=== PATIENT | male | born 1955 | race Caucasian/White ===

== ENCOUNTER → 2020-08-22 | Outpatient (REF) | payer MEDICARE ==
[2020-08-22 15:46] LABS: INR 1.87
== END ==
LOC: M PLALAB 13:18
PROVIDERS: ATTEND Nurse Practitioner Adult Health
DX: Z95.2 Presence of prosthetic heart valve (principal)

== ENCOUNTER → 2020-08-23 | Outpatient (CLI) | payer MEDICARE ==
--- NOTE | 2020-08-23 18:28 | REPPI ---
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 COMPARISON: No comparison chest x-ray. TECHNIQUE: Two views.. FINDINGS: Right hemidiaphragm is somewhat elevated. The patient is status post median sternotomy and aortic valve replacement. The heart is not enlarged. Thoracic aorta is calcific and somewhat tortuous. There is linear fibrosis in the right base. No pleural effusion is seen. No infiltrate is noted. A granulomatous calcification is seen projecting on the lateral view in the retrosternal clear space. No acute bony abnormality. IMPRESSION: Status post aortic valve replacement. Linear fibrosis and elevated right hemidiaphragm. No acute abnormality.. <Electronically signed by Jian Damon > 08/23/20 1781
== END ==
LOC: M PLAIMG 13:34
PROVIDERS: ATTEND Internal Medicine Cardiovascular Disease
DX: I11.9 Hypertensive heart disease without heart failure (principal); Z95.1 Presence of aortocoronary bypass graft

== ENCOUNTER → 2020-08-25 | Outpatient (CLI) | payer MEDICARE ==
[2020-08-25 14:04] LABS: BASO # 0.1 10^3/uL (0.0-0.2); EOS # 0.3 10^3/uL (0.0-0.5); HEMATOCRIT 48.7 % (42.0-52.0); HEMOGLOBIN 16.1 g/dl (13.5-17.5); LYMPH % 16.2 % (24.0-44.0); MEAN CORPUSCULAR HEMOGLOBIN 31.6 pg (27.0-33.0); MEAN CORPUSCULAR HGB CONC 33.1 g/dl (32.0-36.5); MEAN CORPUSCULAR VOLUME 95.5 fl (80.0-96.0); MONO # 0.7 10^3/uL (0.0-0.8); MONO % 11.7 % (2.0-8.0); NEUTROPHILS # 4.2 10^3/uL (1.5-8.5); NEUTROPHILS % 66.8 % (36.0-66.0); PLATELET COUNT, AUTOMATED 161 10^3/uL (150-450); WHITE BLOOD COUNT 6.3 10^3/uL (4.0-10.0)
[2020-08-25 14:34] LABS: ALBUMIN 3.8 GM/DL (3.2-5.2); ALT/SGPT 25 U/L (12-78); BILIRUBIN,TOTAL 1.1 MG/DL (0.2-1.0); BLOOD UREA NITROGEN 16 MG/DL (7-18); CALCIUM LEVEL 9.3 MG/DL (8.8-10.2); CARBON DIOXIDE LEVEL 30 MEQ/L (21-32); CHLORIDE LEVEL 109 MEQ/L (98-107); CHOLESTEROL LEVEL 233 MG/DL (<200); CHOLESTEROL RISK RATIO 3.477 (<5); CREATININE FOR GFR 0.92 MG/DL (0.70-1.30); GLOMERULAR FILTRATION RATE > 60.0 (>49); GLUCOSE, FASTING 93 MG/DL (70-100); HDL CHOLESTEROL 67 MG/DL (>40); LDL CHOLESTEROL 138 MG/DL (<100); NON-HDL-C 166 MG/DL; NT-PRO BNP 44 PG/ML (<125); POTASSIUM SERUM 4.2 MEQ/L (3.5-5.1); SODIUM LEVEL 142 MEQ/L (136-145); THYROID STIMULATING HORMONE 0.769 uIU/ML (0.358-3.740); TOTAL PROTEIN 7.1 GM/DL (6.4-8.2); TRIGLYCERIDES LEVEL 140 MG/DL (<150)
== END ==
LOC: M PLALAB 10:19
PROVIDERS: ATTEND Internal Medicine Cardiovascular Disease
DX: M25.511 Pain in right shoulder (principal); R00.2 Palpitations; I11.9 Hypertensive heart disease without heart failure; R60.0 Localized edema; I35.9 Nonrheumatic aortic valve disorder, unspecified; R94.31 Abnormal electrocardiogram [ECG] [EKG]

== ENCOUNTER → 2020-12-16 | Outpatient (CLI) | payer MEDICARE | LOC: M SLEEP HO 09:41 | PROVIDERS: ATTEND Internal Medicine Cardiovascular Disease | DX: I27.20 Pulmonary hypertension, unspecified (principal) ==

== ENCOUNTER → 2021-08-29 | Outpatient (CLI) | payer MEDICARE ==
[2021-08-29 13:24] LABS: HEMATOCRIT 44.6 % (42.0-52.0); HEMOGLOBIN 14.9 g/dl (13.5-17.5); MEAN CORPUSCULAR HEMOGLOBIN 30.8 pg (27.0-33.0); MEAN CORPUSCULAR HGB CONC 33.4 g/dl (32.0-36.5); MEAN CORPUSCULAR VOLUME 92.3 fl (80.0-96.0); PLATELET COUNT, AUTOMATED 158 10^3/uL (150-450); RED BLOOD COUNT 4.83 10^6/uL (4.30-6.10); WHITE BLOOD COUNT 6.2 10^3/uL (4.0-10.0)
[2021-08-29 13:50] LABS: ALBUMIN 3.5 GM/DL (3.2-5.2); ALT/SGPT 37 U/L (12-78); BILIRUBIN,TOTAL 0.8 MG/DL (0.2-1.0); BLOOD UREA NITROGEN 22 MG/DL (7-18); CALCIUM LEVEL 9.1 MG/DL (8.8-10.2); CARBON DIOXIDE LEVEL 27 MEQ/L (21-32); CHLORIDE LEVEL 109 MEQ/L (98-107); CHOLESTEROL LEVEL 232 MG/DL (<200); CHOLESTEROL RISK RATIO 4.734 (<5); CREATININE FOR GFR 1.01 MG/DL (0.70-1.30); GLOMERULAR FILTRATION RATE > 60.0 (>49); GLUCOSE, FASTING 102 MG/DL (70-100); HDL CHOLESTEROL 49 MG/DL (>40); NON-HDL-C 183 MG/DL; POTASSIUM SERUM 4.3 MEQ/L (3.5-5.1); SODIUM LEVEL 142 MEQ/L (136-145); TOTAL PROTEIN 6.7 GM/DL (6.4-8.2); TRIGLYCERIDES LEVEL 419 MG/DL (<150)
[2021-08-29 14:10] LABS: HEMOGLOBIN A1c 5.3 %
== END ==
LOC: M PLALAB 09:58
PROVIDERS: ATTEND Nurse Practitioner Adult Health
DX: I10 Essential (primary) hypertension (principal)

== ENCOUNTER → 2021-10-19 | Outpatient (CLI) | payer MEDICARE | LOC: M SLEEP 20:00 | PROVIDERS: ATTEND Internal Medicine Pulmonary Disease | DX: G47.33 Obstructive sleep apnea (adult) (pediatric) (principal) ==

== ENCOUNTER → 2022-03-29 | Outpatient (CLI) | payer MEDICARE ==
[2022-03-29 14:21] LABS: BASO # 0.1 10^3/uL (0.0-0.2); EOS # 0.4 10^3/uL (0.0-0.5); EOS % 6.2 % (0.0-3.0); HEMATOCRIT 48.5 % (42.0-52.0); HEMOGLOBIN 15.2 g/dl (13.5-17.5); LYMPH # 1.2 10^3/uL (1.5-5.0); LYMPH % 18.3 % (24.0-44.0); MEAN CORPUSCULAR HEMOGLOBIN 30.3 pg (27.0-33.0); MEAN CORPUSCULAR HGB CONC 31.3 g/dl (32.0-36.5); MEAN CORPUSCULAR VOLUME 96.6 fl (80.0-96.0); MONO # 0.7 10^3/uL (0.0-0.8); MONO % 10.5 % (2.0-8.0); NEUTROPHILS # 4.3 10^3/uL (1.5-8.5); NEUTROPHILS % 63.7 % (36.0-66.0); PLATELET COUNT, AUTOMATED 175 10^3/uL (150-450); RED BLOOD COUNT 5.02 10^6/uL (4.30-6.10); WHITE BLOOD COUNT 6.7 10^3/uL (4.0-10.0)
[2022-03-29 14:58] LABS: ERYTHROCYTE SEDIMENTATION RATE 15 mm/hr (0-20)
[2022-03-29 15:51] LABS: ALBUMIN 3.6 GM/DL (3.2-5.2); BLOOD UREA NITROGEN 23 MG/DL (7-18); CALCIUM LEVEL 9.2 MG/DL (8.8-10.2); CARBON DIOXIDE LEVEL 28 MEQ/L (21-32); CHLORIDE LEVEL 109 MEQ/L (98-107); CHOLESTEROL LEVEL 227 MG/DL (<200); CHOLESTEROL RISK RATIO 3.982 (<5); CREATININE FOR GFR 1.05 MG/DL (0.70-1.30); GLOMERULAR FILTRATION RATE > 60.0 (>49); GLUCOSE, FASTING 109 MG/DL (70-100); HDL CHOLESTEROL 57 MG/DL (>40); LDL CHOLESTEROL 125 MG/DL (<100); NON-HDL-C 170 MG/DL; NT-PRO BNP 51 PG/ML (<125); PHOSPHORUS LEVEL 3.2 MG/DL (2.5-4.9); POTASSIUM SERUM 4.6 MEQ/L (3.5-5.1); SODIUM LEVEL 144 MEQ/L (136-145); TRIGLYCERIDES LEVEL 223 MG/DL (<150)
== END ==
LOC: M PLALAB 09:19
PROVIDERS: ATTEND Internal Medicine Cardiovascular Disease
DX: I35.9 Nonrheumatic aortic valve disorder, unspecified (principal); E78.00 Pure hypercholesterolemia, unspecified

== ENCOUNTER → 2022-09-24 | Outpatient (CLI) | payer MEDICARE ==
[2022-09-24 14:03] LABS: ALBUMIN 3.7 G/DL (3.2-5.2); ALKALINE PHOSPHATASE 77 U/L (46-116); ALT/SGPT 16 U/L (7.0-40); AST/SGOT 26 U/L (<34); BLOOD UREA NITROGEN 17 MG/DL (9-23); CARBON DIOXIDE LEVEL 28 MMOL/L (20-31); CHLORIDE LEVEL 108 MMOL/L (98-107); CHOLESTEROL LEVEL 248 MG/DL (<200); CHOLESTEROL RISK RATIO 4.04 (<5); CREATININE FOR GFR 0.93 MG/DL (0.70-1.30); GLOMERULAR FILTRATION RATE > 60.0 (>49); GLUCOSE, FASTING 105 MG/DL (74-106); HDL CHOLESTEROL 61.3 MG/DL (>40); LDL CHOLESTEROL 152.3 MG/DL (<100); NON-HDL-C 186.7 MG/DL; POTASSIUM SERUM 4.1 MMOL/L (3.5-5.1); SODIUM LEVEL 141 MMOL/L (136-145); TOTAL PROTEIN 6.7 G/DL (5.7-8.2); TRIGLYCERIDES LEVEL 172 MG/DL (<150)
== END ==
LOC: M PLALAB 10:15
PROVIDERS: ATTEND Nurse Practitioner Adult Health
DX: E78.2 Mixed hyperlipidemia (principal)

== ENCOUNTER → 2022-09-27 | Outpatient (REF) | payer MEDICARE ==
[2022-09-27 14:14] LABS: HEMATOCRIT 48.8 % (42.0-52.0); HEMOGLOBIN 16.1 g/dl (13.5-17.5); MEAN CORPUSCULAR HEMOGLOBIN 31.1 pg (27.0-33.0); MEAN CORPUSCULAR VOLUME 94.2 fl (80.0-96.0); PLATELET COUNT, AUTOMATED 194 10^3/uL (150-450); RED BLOOD COUNT 5.18 10^6/uL (4.30-6.10); WHITE BLOOD COUNT 7.4 10^3/uL (4.0-10.0)
[2022-09-27 16:38] LABS: HEMOGLOBIN A1c 5.1 % (4.0-6.0)
== END ==
LOC: M SFHCPLAZ 12:56
PROVIDERS: ATTEND Nurse Practitioner Adult Health
DX: E78.2 Mixed hyperlipidemia (principal); Z13.1 Encounter for screening for diabetes mellitus; I71.20 Thoracic aortic aneurysm, without rupture, unspecified

== ENCOUNTER → 2022-11-19 | Outpatient (CLI) | payer MEDICARE ==
[2022-11-19 12:24] LABS: ALBUMIN 3.6 G/DL (3.2-5.2); ALKALINE PHOSPHATASE 72 U/L (46-116); ALT/SGPT 33 U/L (7.0-40); AST/SGOT 34 U/L (<34); BILIRUBIN,TOTAL 1.7 MG/DL (0.3-1.2); BLOOD UREA NITROGEN 25 MG/DL (9-23); CALCIUM LEVEL 9.2 MG/DL (8.3-10.6); CARBON DIOXIDE LEVEL 28 MMOL/L (20-31); CHLORIDE LEVEL 102 MMOL/L (98-107); CHOLESTEROL LEVEL 167 MG/DL (<200); CHOLESTEROL RISK RATIO 2.58 (<5); CREATININE FOR GFR 1.06 MG/DL (0.70-1.30); GLOMERULAR FILTRATION RATE > 60.0 (>49); GLUCOSE, FASTING 92 MG/DL (74-106); HDL CHOLESTEROL 64.5 MG/DL (>40); LDL CHOLESTEROL 75.7 MG/DL (<100); NON-HDL-C 102.5 MG/DL; POTASSIUM SERUM 4.1 MMOL/L (3.5-5.1); SODIUM LEVEL 136 MMOL/L (136-145); TOTAL PROTEIN 6.5 G/DL (5.7-8.2); TRIGLYCERIDES LEVEL 134 MG/DL (<150)
== END ==
LOC: M PLALAB 09:43
PROVIDERS: ATTEND Internal Medicine Cardiovascular Disease
DX: I11.9 Hypertensive heart disease without heart failure (principal); E78.00 Pure hypercholesterolemia, unspecified

== ENCOUNTER → 2023-06-27 | Outpatient (CLI) | payer MEDICARE ==
[2023-06-27 16:28] LABS: BASO # 0.1 10^3/uL (0.0-0.2); EOS # 0.2 10^3/uL (0.0-0.5); EOS % 3.4 % (0.0-3.0); HEMATOCRIT 42.9 % (42.0-52.0); HEMOGLOBIN 14.4 g/dl (13.5-17.5); LYMPH # 1.3 10^3/uL (1.5-5.0); LYMPH % 17.8 % (24.0-44.0); MEAN CORPUSCULAR HEMOGLOBIN 30.8 pg (27.0-33.0); MEAN CORPUSCULAR HGB CONC 33.6 g/dl (32.0-36.5); MEAN CORPUSCULAR VOLUME 91.9 fl (80.0-96.0); MONO # 0.7 10^3/uL (0.0-0.8); NEUTROPHILS # 4.8 10^3/uL (1.5-8.5); NEUTROPHILS % 67.4 % (36.0-66.0); PLATELET COUNT, AUTOMATED 165 10^3/uL (150-450); RED BLOOD COUNT 4.67 10^6/uL (4.30-6.10); WHITE BLOOD COUNT 7.1 10^3/uL (4.0-10.0)
[2023-06-27 16:41] LABS: ALBUMIN 3.6 G/DL (3.2-5.2); ALKALINE PHOSPHATASE 70 U/L (46-116); ALT/SGPT 51 U/L (7.0-40); AST/SGOT 51 U/L (<34); BILIRUBIN,TOTAL 1.2 MG/DL (0.3-1.2); BLOOD UREA NITROGEN 24 MG/DL (9-23); CALCIUM LEVEL 8.9 MG/DL (8.3-10.6); CARBON DIOXIDE LEVEL 28 MMOL/L (20-31); CHLORIDE LEVEL 106 MMOL/L (98-107); CREATININE FOR GFR 0.97 MG/DL (0.70-1.30); GLOMERULAR FILTRATION RATE > 60.0 (>49); GLUCOSE, FASTING 91 MG/DL (74-106); POTASSIUM SERUM 3.9 MMOL/L (3.5-5.1); SODIUM LEVEL 140 MMOL/L (136-145); TOTAL PROTEIN 6.8 G/DL (5.7-8.2)
== END ==
LOC: M PLALAB 14:30
PROVIDERS: ATTEND Internal Medicine Cardiovascular Disease
DX: I35.9 Nonrheumatic aortic valve disorder, unspecified (principal); I11.9 Hypertensive heart disease without heart failure; R94.31 Abnormal electrocardiogram [ECG] [EKG]

== ENCOUNTER → 2023-10-07 | Outpatient (CLI) | payer MEDICARE ==
[2023-10-07 13:34] LABS: HEMATOCRIT 44.1 % (42.0-52.0); HEMOGLOBIN 14.7 g/dl (13.5-17.5); MEAN CORPUSCULAR HEMOGLOBIN 31.1 pg (27.0-33.0); MEAN CORPUSCULAR HGB CONC 33.3 g/dl (32.0-36.5); MEAN CORPUSCULAR VOLUME 93.4 fl (80.0-96.0); PLATELET COUNT, AUTOMATED 154 10^3/uL (150-450); RED BLOOD COUNT 4.72 10^6/uL (4.30-6.10); WHITE BLOOD COUNT 6.8 10^3/uL (4.0-10.0)
[2023-10-07 13:51] LABS: HEMOGLOBIN A1c 5.2 % (4.0-6.0)
[2023-10-07 14:02] LABS: ALBUMIN 3.4 G/DL (3.2-5.2); ALKALINE PHOSPHATASE 70 U/L (46-116); ALT/SGPT 50 U/L (7.0-40); AST/SGOT 39 U/L (<34); BLOOD UREA NITROGEN 22 MG/DL (9-23); CALCIUM LEVEL 9.1 MG/DL (8.3-10.6); CARBON DIOXIDE LEVEL 29 MMOL/L (20-31); CHLORIDE LEVEL 105 MMOL/L (98-107); CHOLESTEROL LEVEL 163 MG/DL (<200); CHOLESTEROL RISK RATIO 2.86 (<5); CREATININE FOR GFR 1.05 MG/DL (0.70-1.30); GLOMERULAR FILTRATION RATE > 60.0 (>49); GLUCOSE, FASTING 103 MG/DL (74-106); HDL CHOLESTEROL 56.8 MG/DL (>40); LDL CHOLESTEROL 64.8 MG/DL (<100); MAGNESIUM LEVEL 1.4 MG/DL (1.8-2.4); NON-HDL-C 106.2 MG/DL; POTASSIUM SERUM 4.4 MMOL/L (3.5-5.1); PSA SCREENING 1.24 NG/ML (< 4.00); SODIUM LEVEL 139 MMOL/L (136-145); TOTAL PROTEIN 6.2 G/DL (5.7-8.2); TRIGLYCERIDES LEVEL 207 MG/DL (<150)
[2023-10-07 14:04] LABS: FERRITIN 165.7 NG/ML (10.5-307.3)
== END ==
LOC: M PLALAB 09:12
PROVIDERS: ATTEND Nurse Practitioner Adult Health
DX: Z79.01 Long term (current) use of anticoagulants (principal); I10 Essential (primary) hypertension; Z13.1 Encounter for screening for diabetes mellitus; D50.9 Iron deficiency anemia, unspecified; Z12.5 Encounter for screening for malignant neoplasm of prostate
CPT/HCPCS: 36415; 80053; 80061; 82728; 83036; 83735; 83880; 85027; G0103

== ENCOUNTER 2024-01-20 09:10 | Day surgery (SDC) | payer MEDICARE ==
[~2024-01-20] VITALS: Ht 170.2 cm; Wt 74.8 kg
[~2024-01-20 09:10] MED LIST: AMLO1TAB25 PO; ATOR1TAB21 PO; BENA-8 PO; CHLO125TA PO; HYDR-3363 PO; LR 1,000 ML IV SCH; MAGN400T33 PO; METO50TA7 PO; MIDAZOLAM INJ 2MG/2ML VIAL As Ordered ONE; OMEP40CA5 PO; SILD20TA11 PO; SPIR-10 PO; WARF-23 PO; fentaNYL 100 MCG/2 ML INJECTION As Ordered ONE
[2024-01-20] MEDS: ATROPINE SULFATE 1% OPHTH SOLN 2ML BTL OS SCH (09:58)
[2024-01-20] MEDS: PHENYLEPHRINE 2.5% OPHTH SOL 2ML OS SCH (09:58)
[2024-01-20] MEDS: FLURBIPROFEN 0.03% OPHTH SOLN 2.5 ML OS SCH (09:58)
[2024-01-20] MEDS: TETRACAINE 0.5% OPHTH SOLN 4ML OS SCH (09:58)
[2024-01-20] MEDS: LIDOCAINE 1% SDV 5ML VIAL As Ordered ONE (11:35)
[2024-01-20] MEDS: CEFUROXIME 1MG/0.1ML INTRACAMERAL INJ As Ordered ONE (11:40)
[2024-01-20 11:51] VITALS: BP 98/66; TEMP 97.1; O2SAT 97
== END 2024-01-20 12:20 | disposition home or self-care (01) ==
LOC: M SDC 09:10
PROVIDERS: ATTEND Ophthalmology
DX: H25.12 Age-related nuclear cataract, left eye (principal); I10 Essential (primary) hypertension; E78.00 Pure hypercholesterolemia, unspecified; G47.30 Sleep apnea, unspecified; Z79.899 Other long term (current) drug therapy; Z79.01 Long term (current) use of anticoagulants; Z88.8 Allergy status to other drugs, medicaments and biological substances; Z95.2 Presence of prosthetic heart valve
CPT/HCPCS: 66984; J0697; J2250; J3010; V2632

== ENCOUNTER 2024-03-23 07:11 | Day surgery (SDC) | payer MEDICARE ==
[~2024-03-23] VITALS: Ht 170.2 cm; Wt 77.8 kg
[~2024-03-23 07:11] MED LIST changes: -MIDAZOLAM INJ 2MG/2ML VIAL As Ordered ONE; -fentaNYL 100 MCG/2 ML INJECTION As Ordered ONE
[2024-03-23] MEDS ORDERED: fentaNYL 100 MCG/2 ML INJECTION As Ordered ONE (07:15)
[2024-03-23] MEDS: TETRACAINE 0.5% OPHTH SOLN 4ML OD SCH (08:31)
[2024-03-23] MEDS: PHENYLEPHRINE 2.5% OPHTH SOL 2ML OD SCH (08:31)
[2024-03-23] MEDS: FLURBIPROFEN 0.03% OPHTH SOLN 2.5 ML OD SCH (08:31)
[2024-03-23] MEDS: ATROPINE SULFATE 1% OPHTH SOLN 2ML BTL OD SCH (08:31)
[2024-03-23] MEDS: LIDOCAINE 1% SDV 5ML VIAL As Ordered ONE (09:45)
[2024-03-23] MEDS: CEFUROXIME 1MG/0.1ML INTRACAMERAL INJ As Ordered ONE (09:47)
[2024-03-23 10:07] VITALS: BP 142/79; TEMP 97.4; O2SAT 99
== END 2024-03-23 10:27 | disposition home or self-care (01) ==
LOC: M SDC 07:11
PROVIDERS: ATTEND Ophthalmology
DX: H25.11 Age-related nuclear cataract, right eye (principal); I35.9 Nonrheumatic aortic valve disorder, unspecified; Z95.2 Presence of prosthetic heart valve; G47.30 Sleep apnea, unspecified; Z88.8 Allergy status to other drugs, medicaments and biological substances; Z79.899 Other long term (current) drug therapy
CPT/HCPCS: 66984; J0697; J3010; V2632

== ENCOUNTER → 2024-07-10 | Outpatient (CLI) | payer MEDICARE ==
[~2024-07-10] MED LIST changes: -LR 1,000 ML IV SCH
== END ==
LOC: M CARPUL 09:04
PROVIDERS: ATTEND Internal Medicine Cardiovascular Disease
DX: I08.0 Rheumatic disorders of both mitral and aortic valves (principal); I71.21 Aneurysm of the ascending aorta, without rupture; I27.81 Cor pulmonale (chronic); Z95.2 Presence of prosthetic heart valve; I37.1 Nonrheumatic pulmonary valve insufficiency; I50.30 Unspecified diastolic (congestive) heart failure

== ENCOUNTER → 2024-08-04 | Outpatient (CLI) | payer MEDICARE | LOC: M EKG 14:29 | PROVIDERS: ATTEND Registered Nurse | DX: R00.1 Bradycardia, unspecified (principal) ==

== ENCOUNTER → 2024-08-21 | Outpatient (CLI) | payer MEDICARE ==
[2024-08-21 13:37] LABS: BASO # 0.1 10^3/uL (0.0-0.2); BASO % 1.1 % (0.0-1.0); EOS # 0.4 10^3/uL (0.0-0.5); EOS % 5.1 % (0.0-3.0); HEMATOCRIT 47.9 % (42.0-52.0); LYMPH # 1.3 10^3/uL (1.5-5.0); LYMPH % 15.9 % (24.0-44.0); MEAN CORPUSCULAR HEMOGLOBIN 30.5 pg (27.0-33.0); MEAN CORPUSCULAR HGB CONC 33.4 g/dl (32.0-36.5); MEAN CORPUSCULAR VOLUME 91.2 fl (80.0-96.0); MONO # 0.8 10^3/uL (0.0-0.8); MONO % 9.2 % (2.0-8.0); NEUTROPHILS # 5.6 10^3/uL (1.5-8.5); NEUTROPHILS % 68.1 % (36.0-66.0); PLATELET COUNT, AUTOMATED 193 10^3/uL (150-450); RED BLOOD COUNT 5.25 10^6/uL (4.30-6.10); WHITE BLOOD COUNT 8.2 10^3/uL (4.0-10.0)
[2024-08-21 14:13] LABS: ALBUMIN 3.7 G/DL (3.2-5.2); ALKALINE PHOSPHATASE 73 U/L (40-129); ALT/SGPT 28 U/L (7.0-40); AST/SGOT 32 U/L (<34); BILIRUBIN,TOTAL 1.2 MG/DL (0.3-1.2); BLOOD UREA NITROGEN 24 MG/DL (9-23); CALCIUM LEVEL 9.1 MG/DL (8.3-10.6); CARBON DIOXIDE LEVEL 28 MMOL/L (20-31); CHLORIDE LEVEL 103 MMOL/L (98-107); CHOLESTEROL LEVEL 178 MG/DL (<200); CHOLESTEROL RISK RATIO 2.88 (<5); CREATININE FOR GFR 0.98 MG/DL (0.70-1.30); GLOMERULAR FILTRATION RATE > 60.0 (>42); GLUCOSE, FASTING 93 MG/DL (74-106); HDL CHOLESTEROL 61.7 MG/DL (>40); LDL CHOLESTEROL 69.7 MG/DL (<100); MAGNESIUM LEVEL 1.6 MG/DL (1.8-2.4); NON-HDL-C 116.3 MG/DL; POTASSIUM SERUM 4.5 MMOL/L (3.5-5.1); SODIUM LEVEL 139 MMOL/L (136-145); TOTAL PROTEIN 7.1 G/DL (5.7-8.2); TRIGLYCERIDES LEVEL 233 MG/DL (<150)
[2024-08-21 14:16] LABS: FREE T4 1.17 NG/DL (0.89-1.76)
== END ==
LOC: M PLALAB 09:59
PROVIDERS: ATTEND Registered Nurse
DX: R94.31 Abnormal electrocardiogram [ECG] [EKG] (principal); E07.9 Disorder of thyroid, unspecified; E78.00 Pure hypercholesterolemia, unspecified

== ENCOUNTER → 2024-12-04 | Outpatient (CLI) | payer MEDICARE ==
[2024-12-04 14:11] LABS: PLATELET COUNT, AUTOMATED 171 10^3/uL (150-450)
[2024-12-04 14:18] LABS: ALT/SGPT 24.0 U/L (7.0-40); AST/SGOT 31.0 U/L (<34); CALCIUM LEVEL 8.8 MG/DL (8.3-10.6); CARBON DIOXIDE LEVEL 26.0 MMOL/L (20-31); CHLORIDE LEVEL 105.0 MMOL/L (98-107); CHOLESTEROL LEVEL 155.0 MG/DL (<200); CHOLESTEROL RISK RATIO 2.71 (<5); CREATININE FOR GFR 1.12 MG/DL (0.70-1.30); GLOMERULAR FILTRATION RATE 70.7 (>42); LDL CHOLESTEROL 69.4 MG/DL (<100); MAGNESIUM LEVEL 1.7 MG/DL (1.8-2.4); NON-HDL-C 98.0 MG/DL; POTASSIUM SERUM 4.5 MMOL/L (3.5-5.1); SODIUM LEVEL 143.0 MMOL/L (136-145); TRIGLYCERIDES LEVEL 143.0 MG/DL (<150)
[2024-12-04 14:19] LABS: PSA SCREENING 1.91 NG/ML (< 4.00)
[2024-12-04 14:23] LABS: ESTIMATED AVERAGE GLUCOSE 105.0 MG/DL (60-110)
== END ==
LOC: M PLALAB 10:02
PROVIDERS: ATTEND Nurse Practitioner Adult Health
DX: Z79.01 Long term (current) use of anticoagulants (principal); E78.00 Pure hypercholesterolemia, unspecified; Z12.5 Encounter for screening for malignant neoplasm of prostate; D50.9 Iron deficiency anemia, unspecified
CPT/HCPCS: 36415; 80053; 80061; 82728; 83036; 83735; 85027; G0103